=== PATIENT | male | born 1975 | race Hispanic/Latino ===

== ENCOUNTER 2017-01-07 10:42 | Emergency (ER) | payer MEDICARE ==
[~2017-01-07] VITALS: Ht 170.2 cm; Wt 117.0 kg
[~2017-01-07 10:42] MED LIST: HYDR-757 PO
[2017-01-07] MEDS ORDERED: CYCL5TAB PO (12:07)
[2017-01-07] MEDS ORDERED: PRD20T PO (12:07)
--- NOTE | 2017-01-07 12:08 | ED Upper Extremity ---
General Chief Complaint: Upper Extremity Stated Complaint: LT SHOULDER/ARM PAIN Nursing Triage Note: PT CO OF L SHOULDER AND ARM PAIN, DENIES INJURY, STATES PAIN GOES AWAY WHEN RAISES L ARM Nursing Sepsis Screen: No Definite Risk Source: patient Exam Limitations: no limitations History of Present Illness Time seen by provider: 12:05 Initial Comments To ER with left shoulder and arm pain. The pain also affects the posterior medial aspect of the scapula and shoulder region. States that at work he does a lot of overhead lifting of heavy weights in the 50-80 pound range. This began last night. He's never had this before. Pain gets better with lifting his arm up over his head. Pain radiates all the way down his hand to his fingers. Onset: yesterday Severity: moderate Pain/Injury Location: left shoulder Modifying Factors: Worse With Movement Allergies and Home Medications Allergies Coded Allergies: No Known Drug Allergies (Unverified , 03/17/14) Home Medications No Active Prescriptions or Reported Meds Constitutional: see HPI EENTM: see HPI Respiratory: no symptoms reported Cardiovascular: no symptoms reported Genitourinary: no symptoms reported Musculoskeletal: see HPI Skin: no symptoms reported Psychiatric/Neurological: No Symptoms Reported Past Dzupnis-Fkwtwu-Zzgrxq Hx Patient Social History Alcohol Use: Rarely Uses Number of Drinks Today: 0 Alcohol Beverage of Choice: Beer Recreational Drug Use: No Smoking Status: Current Someday Smoker Type Used: Cigarettes Recent Foreign Travel: No Contact w/Someone Who Travel: No Recent Infectious Disease Expo: No Recent Hopitalizations: No Physical Abuse: No Sexual Abuse: No Seasonal Allergies Seasonal Allergies: Yes Psychosocial Suicide Risk Score: 0 Physical Exam Vital Signs Vital Sign - Last 12Hours 01/07/17 11:20 Temp 97.1 Pulse 100 Resp 18 B/P (MAP) 43/98 Pulse Ox 98 Capillary Refill : Less Than 3 Seconds General Appearance: WD/WN, no apparent distress HEENT: PERRL/EOMI, normal ENT inspection Neck: non-tender, full range of motion Respiratory: normal breath sounds, no respiratory distress, no accessory muscle use Gastrointestinal: normal bowel sounds, non tender, soft Shoulder: normal inspection, non-tender (a bit of tenderness to the medial aspect of the superior left scapula. Full range of motion of the arm. No swelling or ecchymosis.) Elbow/Forearm: normal inspection, non-tender, no evidence of injury Wrist: Yes normal inspection, Yes non-tender Neurologic/Psychiatric: alert, normal mood/affect, oriented x 3 Skin: normal color, warm/dry Progress/Results/Core Measures Results/Orders Vital Signs/I&O Vital Sign - Last 12Hours 01/07/17 11:20 Temp 97.1 Pulse 100 Resp 18 B/P (MAP) 43/98 Pulse Ox 98 Blood Pressure Mean: 80 Departure Impression Impression: Primary Impression: Cervical radiculopathy Disposition: HOME, SELF-CARE Condition: Stable Departure-Patient Inst. Decision time for Depature: 12:06 Referrals: [facility] (PCP/Family) Primary Care Physician Patient Instructions: Radiculopathy (DC) Add. Discharge Instructions: 1. Medication as directed 2. Follow-up with your doctor next week for further evaluation if the pain persists 3. Return to ER for any worsening 4. A work note is on the very back PAGE of this packet All discharge instructions reviewed with patient and/or family. Voiced understanding. Scripts Cyclobenzaprine HCl (Cyclobenzaprine HCl) 5 Mg Tablet 5 MG PO TID Y for PAIN-SEVERE, #20 TAB Prov: TYRESE CORRALES APRN 01/07/17 Prednisone (Prednisone) 20 Mg Tab 40 MG PO DAILY, #8 TAB Prov: TYRESE CORRALES APRN 01/07/17 Work/School Note: Work Release Form Date Seen in the Emergency Department: Jan 07, 2017 Return to Work: Jan 11, 2017 Restrictions: No Restrictions TYRESE CORRALES APRN Jan 07, 2017 12:08
[2017-01-07 12:15] VITALS: BP 142/90
[2017-01-07] MEDS ORDERED: KETOROLAC 60 MG/2 ML VIAL IM ONE (12:15)
[2017-01-07] MEDS ORDERED: ORPHENADRINE 60 MG/2 ML (NORFLEX) AMP IM ONE (12:15)
== END 2017-01-07 12:15 | disposition home or self-care (01) ==
LOC: EDUNIT# 10:42 → ER 10:44
DX: M54.12 Radiculopathy, cervical region (principal); F17.210 Nicotine dependence, cigarettes, uncomplicated
CPT/HCPCS: 99284

== ENCOUNTER 2018-05-06 11:23 | Emergency (ER) | payer MEDICARE, OTHER ==
[~2018-05-06] VITALS: Ht 170.2 cm; Wt 106.6 kg
[~2018-05-06 11:23] MED LIST changes: +CYCL5TAB PO; +HYDR-4226 PO; -HYDR-757 PO; +PRD20T PO
--- NOTE | 2018-05-06 11:51 | NUR ---
NOTIFIED OF BUSY ER WITH POSSIBLE LONG WAIT TIME.
[2018-05-06 12:52] LABS: BASOPHILS % (AUTO) 0 % (0-10); BILIRUBIN,URINE 2+ (NEGATIVE); CLARITY,URINE CLEAR; COLOR,URINE AMBER; EOSINOPHILS % (AUTO) 0 % (0-10); GLUCOSE, URINE (UA) 1+ (NEGATIVE); HEMATOCRIT 49 % (40-54); HEMOGLOBIN 16.9 G/DL (13.3-17.7); KETONES,URINE 1+ (NEGATIVE); LEUKOCYTE ESTERASE ,URINE 2+ (NEGATIVE); LYMPHOCYTES # (AUTO) 0.8 X 10^3 (1.0-4.0); LYMPHOCYTES % (AUTO) 7 % (12-44); MEAN CORPUSCULAR HEMOGLOBIN 29 PG (25-34); MEAN CORPUSCULAR HGB CONC 35 G/DL (32-36); MEAN CORPUSCULAR VOLUME 84 FL (80-99); MONOCYTES % (AUTO) 9 % (0-12); NEUTROPHILS # (AUTO) 9.4 X 10^3 (1.8-7.8); NEUTROPHILS % (AUTO) 84 % (42-75); NITRITE,URINE POSITIVE (NEGATIVE); PH,URINE 5 (5-9); PLATELET COUNT 305 10^3/uL (130-400); PROTEIN,URINE 3+ (NEGATIVE); RED BLOOD COUNT 5.78 10^6/uL (4.35-5.85); RED CELL DISTRIBUTION WIDTH 13.1 % (10.0-14.5); UROBILINOGEN,URINE 4 MG/DL (NORMAL); WHITE BLOOD COUNT 11.2 10^3/uL (4.3-11.0)
[2018-05-06 12:55] LABS: BACTERIA,URINE MODERATE /HPF; HYALINE CASTS, URINE 0-2 /LPF; WBC,URINE 0-2 /HPF
--- NOTE | 2018-05-06 12:56 | ED Abdominal Pain ---
General Chief Complaint: Abdominal/GI Problems Stated Complaint: N/V;ABD PAIN Nursing Triage Note: LLQ ABD PAIN THAT RAIDATES TO LUQ PAIN STARTING LAST NIGHT ALONG WITH VOMITING. Sepsis Screen: No Definite Risk Source of Information: Patient Exam Limitations: No Limitations History of Present Illness Date Seen by Provider: May 06, 2018 Time Seen by Provider: 12:54 Initial Comments To ER with left lower quadrant abdominal pain. This began yesterday and radiates to the left upper quadrant. He denies fevers but he has had chills. He' s had nausea vomiting and loose stools. No history of this. Timing/Duration: 1-2 Days Severity/Quality: Moderate Location: LLQ Radiation: No Radiation Activities at Onset: None Associated Symptoms: Fever/Chills, Nausea/Vomiting Allergies and Home Medications Allergies Coded Allergies: No Known Drug Allergies (Unverified , 03/17/14) Home Medications Cyclobenzaprine HCl 5 Mg Tablet, 5 MG PO TID PRN for PAIN-SEVERE Prescribed by: TYRESE CORRALES on 01/07/171206 Prednisone 20 Mg Tab, 40 MG PO DAILY Prescribed by: TYRESE CORRALES on 01/07/17 1207 Patient Home Medication List Home Medication List Reviewed: Yes Review of Systems Review of Systems Constitutional: see HPI EENTM: No Symptoms Reported Respiratory: No Symptoms Reported Cardiovascular: See HPI Gastrointestinal: See HPI, Abdominal Pain, Diarrhea, Nausea Genitourinary: No Symptoms Reported Musculoskeletal: no symptoms reported Skin: no symptoms reported Psychiatric/Neurological: No Symptoms Reported Endocrine: No Symptoms Reported Past Qjoixes-Jflshb-Hzwlvj Hx Patient Social History Alcohol Beverage of Choice: Beer Type Used: Cigarettes Recent Foreign Travel: No Contact w/Someone Who Travel: No Recent Infectious Disease Expo: No Recent Hopitalizations: No Seasonal Allergies Seasonal Allergies: Yes Physical Exam Vital Signs Vital Signs - First Documented 05/06/18 11:49 Temp 98.1 Pulse 127 Resp 16 B/P (MAP) 133/73 (93) Pulse Ox 95 O2 Delivery Room Air Capillary Refill : Less Than 3 Seconds Height/Weight/BMI Height: 5'7.00" Weight: 235lbs. oz. 106.432384ff; BMI Method:Stated General Appearance: WD/WN, no apparent distress HEENT: PERRL/EOMI, normal ENT inspection Respiratory: no respiratory distress, no accessory muscle use Cardiovascular: no murmur, tachycardia Gastrointestinal: normal bowel sounds, soft, tenderness Extremities: normal range of motion, non-tender Neurologic/Psychiatric: alert, normal mood/affect, oriented x 3 Skin: normal color, warm/dry Progress/Results/Core Measures Results/Orders Lab Results Laboratory Tests Test 05/06/18 12:46 Range/Units White Blood Count 11.2 H 4.3-11.0 10^3/uL Red Blood Count 5.78 4.35-5.85 10^6/uL Hemoglobin 16.9 13.3-17.7 G/DL Hematocrit 49 40-54 % Mean Corpuscular Volume 84 80-99 FL Mean Corpuscular Hemoglobin 29 25-34 PG Mean Corpuscular Hemoglobin Concent 35 32-36 G/DL Red Cell Distribution Width 13.1 10.0-14.5 % Platelet Count 305 130-400 10^3/uL Mean Platelet Volume 9.0 7.4-10.4 FL Neutrophils (%) (Auto) 84 H 42-75 % Lymphocytes (%) (Auto) 7 L 12-44 % Monocytes (%) (Auto) 9 0-12 % Eosinophils (%) (Auto) 0 0-10 % Basophils (%) (Auto) 0 0-10 % Neutrophils # (Auto) 9.4 H 1.8-7.8 X 10^3 Lymphocytes # (Auto) 0.8 L 1.0-4.0 X 10^3 Monocytes # (Auto) 1.0 0.0-1.0 X 10^3 Eosinophils # (Auto) 0.0 0.0-0.3 10^3/uL Basophils # (Auto) 0.0 0.0-0.1 10^3/uL Neutrophils % (Manual) 83 % Lymphocytes % (Manual) 7 % Monocytes % (Manual) 13 % Urine Color MARJORIE H Urine Clarity CLEAR Urine pH 5 5-9 Urine Specific Monitor 1.030 H 1.016-1.022 Urine Protein 3+ H NEGATIVE Urine Glucose (UA) 1+ H NEGATIVE Urine Ketones 1+ H NEGATIVE Urine Nitrite POSITIVE H NEGATIVE Urine Bilirubin 2+ H NEGATIVE Urine Urobilinogen 4 H NORMAL MG/DL Urine Leukocyte Esterase 2+ H NEGATIVE Urine RBC (Auto) 1+ H NEGATIVE Urine RBC NONE /HPF Urine WBC 0-2 /HPF Urine Squamous Epithelial Cells 5-10 /HPF Urine Crystals NONE /LPF Urine Bacteria MODERATE H /HPF Urine Casts PRESENT /LPF Urine Hyaline Casts 0-2 H /LPF Urine Mucus MODERATE H /LPF Urine Culture Indicated YES Sodium Level 136 135-145 MMOL/L Potassium Level 4.1 3.6-5.0 MMOL/L Chloride Level 100 98-107 MMOL/L Carbon Dioxide Level 21 21-32 MMOL/L Anion Gap 15 H 5-14 MMOL/L Blood Urea Nitrogen 24 H 7-18 MG/DL Creatinine 1.33 H 0.60-1.30 MG/DL Estimat Glomerular Filtration Rate 60 BUN/Creatinine Ratio 18 Glucose Level 188 H 70-105 MG/DL Calcium Level 10.0 8.5-10.1 MG/DL Corrected Calcium 8.5-10.1 MG/DL Total Bilirubin 0.6 0.1-1.0 MG/DL Aspartate Amino Transf (AST/SGOT) 156 H 5-34 U/L Alanine Aminotransferase (ALT/SGPT) 108 H 0-55 U/L Alkaline Phosphatase 121 40-136 U/L Total Protein 9.1 H 6.4-8.2 GM/DL Albumin 5.1 H 3.2-4.5 GM/DL Lipase 48 8-78 U/L My Orders Orders - TYRESE CORRALES APRN Cbc With Automated Diff (05/06/18 12:06) Comprehensive Metabolic Panel (05/06/18 12:06) Lipase (05/06/18 12:06) Iv Heplock-Insert (Order) (05/06/18 12:06) Lactated Ringers (Lr 1000 Ml Iv Solution (05/06/18 13:00) Ct Abdomen/Pelvis W (05/06/18 12:51) Manual Differential (05/06/18 12:46) Ketorolac Injection (Toradol Injection) (05/06/18 13:00) Iohexol Injection (Omnipaque 350 Mg/Ml 1 (05/06/18 13:00) Contrast Received (Contrast Received) (05/06/18 13:00) Ns (Ivpb) (Sodium Chloride 0.9% Ivpb Bag (05/06/18 13:00) Ns Iv 1000 Ml (Sodium Chloride 0.9%) (05/06/18 13:30) Hyoscyamine Sl Tablet (Levsin Sl Tablet) (05/06/18 14:15) Medications Given in ED Current Medications Medications Dose Ordered Sig/Gela Route Start Time Stop Time Status Last Admin Dose Admin Iohexol 100 ml ONCE ONCE IV 05/06/18 13:00 05/06/18 13:02 DC 05/06/18 13:46 100 ML Ketorolac Tromethamine 15 mg ONCE ONCE IVP 05/06/18 13:00 05/06/18 13:01 DC 05/06/18 13:16 15 MG Sodium Chloride 100 ml ONCE ONCE IV 05/06/18 13:00 05/06/18 13:02 DC 05/06/18 13:46 80 ML Vital Signs/I&O 05/06/18 11:49 Temp 98.1 Pulse 127 Resp 16 B/P (MAP) 133/73 (93) Pulse Ox 95 O2 Delivery Room Air Blood Pressure Mean: 93 Diagnostic Imaging Diagonstic Imaging: Xray Comments NAME: ELYSIA POP [facility] REC#: [id number] PT STATUS: REG ER : 1975 PHYSICIAN: TYRESE CORRALES ORGANIZATIONAL PSYCHOLOGIST ADMIT DATE: 05/06/18/ER Draft Date of Exam:05/06/18 CT ABDOMEN/PELVIS W PROCEDURE: CT abdomen and pelvis with contrast. TECHNIQUE: Multiple contiguous axial images were obtained through the abdomen and pelvis after administration of intravenous contrast. INDICATION: Left lower quadrant pain. COMPARISON: None available. FINDINGS: Lower chest: The lung bases are clear. No pericardial or pleural effusion. Peritoneum: No free intraperitoneal air or fluid. Liver and biliary system: Marked hypoattenuation of the liver is compatible with diffuse hepatic steatosis. No focal hepatic lesion. The gallbladder is normal. No biliary duct dilation. Spleen and Pancreas: Spleen is normal. The pancreas enhances normally without mass lesion or peripancreatic inflammatory changes. Adrenals: Benign fat-containing nodule within the left adrenal gland measuring 2.8 x 2.6 cm is most compatible with a myelolipoma. No right adrenal mass. tract: The kidneys enhance normally without suspicious mass or obstruction. Partially duplicated left-sided renal collecting system. Urinary bladder is distended without wall thickening. Prostate is not enlarged. GI tract: Stomach is fluid filled without wall thickening. Fluid-filled small bowel loops are not dilated. There is fluid throughout the colon without wall thickening or pericolonic inflammatory changes. Normal appendix. Vasculature and Lymph nodes: Normal caliber aorta. No abdominal or pelvic lymphadenopathy. Musculoskeletal: No concerning osseous lesion. IMPRESSION: 1. Fluid-filled but nondilated stomach, small bowel, and colon are features most suggestive of a gastroenteritis. No colitis or diverticulitis. 2. Diffuse hepatic steatosis. Dictated on workstation # [id number] Dict: 05/06/18 1422 Trans: 05/06/18 1429 [id number] Interpreted by: MARIXA HUANG MD Electronically signed by: Departure Impression Primary Impression: Gastroenteritis Disposition: HOME, SELF-CARE Condition: Stable Departure-Patient Inst. Decision time for Depature: 15:00 Referrals: [facility] (PCP/Family) Primary Care Physician Patient Instructions: [id number] Add. Discharge Instructions: 1. Medication as directed 2. Return to ER for any concerns 3. Follow-up with your doctor next week 4. Drink plenty of fluids to stay hydrated. Pedialyte is a great choice. All discharge instructions reviewed with patient and/or family. Voiced understanding. Scripts Ondansetron (Ondansetron Odt) 8 Mg Tab.rapdis 8 MG PO Q6H PRN for NAUSEA/VOMITING, #10 TAB Prov: TYRESE CORRALES ORGANIZATIONAL PSYCHOLOGIST 05/06/18 Hyoscyamine Sulfate (Levsin-Sl) 0.125 Mg Tab.subl 0.125 MG SL Q4H PRN for CRAMPS, #20 TAB Prov: TYRESE CORRALES APRN 05/06/18 Work/School Note: Work Release Form Date Seen in the Emergency Department: May 06, 2018 Return to Work: May 08, 2018 Restrictions: No Restrictions TYRESE CORRALES APRN May 06, 2018 12:56
[2018-05-06] MEDS ORDERED: IOHEXOL 350 MG/ML 100 ML (OMNIPAQUE 350) VIAL IV ONE (13:00)
[2018-05-06] MEDS ORDERED: RECEIVED CONTRAST (Hold Metformin) IV SCH (13:00)
[2018-05-06] MEDS ORDERED: NS 100 ML (IVPB) BAG IV ONE (13:00)
[2018-05-06] MEDS ORDERED: KETOROLAC 30 MG/ML VIAL IVP ONE (13:00)
[2018-05-06] MEDS ORDERED: LACTATED RINGERS 1,000 ML IV SCH (13:00)
[2018-05-06 13:10] LABS: ALANINE AMINOTRANSFERASE 108 U/L (0-55); ALBUMIN 5.1 GM/DL (3.2-4.5); ALKALINE PHOSPHATASE 121 U/L (40-136); BILIRUBIN,TOTAL 0.6 MG/DL (0.1-1.0); BUN/CREATININE RATIO 18; CARBON DIOXIDE 21 MMOL/L (21-32); CHLORIDE 100 MMOL/L (98-107); CREATININE SERUM 1.33 MG/DL (0.60-1.30); GFR ESTIMATED 60; GLUCOSE 188 MG/DL (70-105); LIPASE 48 U/L (8-78); POTASSIUM 4.1 MMOL/L (3.6-5.0); SODIUM 136 MMOL/L (135-145); TOTAL PROTEIN 9.1 GM/DL (6.4-8.2)
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
[2018-05-06] MEDS ORDERED: NS IV 1000 ML 1,000 ML IV SCH (13:30)
[2018-05-06 13:40] LABS: LYMPHOCYTES % (MANUAL) 7 %; MONOCYTES % (MANUAL) 13 %; NEUTROPHILS % (MANUAL) 83 %
[2018-05-06] MEDS ORDERED: HYOSCYAMINE 0.125 MG (LEVSIN) TAB PO ONE (14:15)
--- NOTE | 2018-05-06 14:30 | Diagnostic Imaging Report ---
PROCEDURE: CT abdomen and pelvis with contrast. TECHNIQUE: Multiple contiguous axial images were obtained through the abdomen and pelvis after administration of intravenous contrast. INDICATION: Left lower quadrant pain. COMPARISON: None available. FINDINGS: Lower chest: The lung bases are clear. No pericardial or pleural effusion. Peritoneum: No free intraperitoneal air or fluid. Liver and biliary system: Marked hypoattenuation of the liver is compatible with diffuse hepatic steatosis. No focal hepatic lesion. The gallbladder is normal. No biliary duct dilation. Spleen and Pancreas: Spleen is normal. The pancreas enhances normally without mass lesion or peripancreatic inflammatory changes. Adrenals: Benign fat-containing nodule within the left adrenal gland measuring 2.8 x 2.6 cm is most compatible with a myelolipoma. No right adrenal mass. tract: The kidneys enhance normally without suspicious mass or obstruction. Partially duplicated left-sided renal collecting system. Urinary bladder is distended without wall thickening. Prostate is not enlarged. GI tract: Stomach is fluid filled without wall thickening. Fluid-filled small bowel loops are not dilated. There is fluid throughout the colon without wall thickening or pericolonic inflammatory changes. Normal appendix. Vasculature and Lymph nodes: Normal caliber aorta. No abdominal or pelvic lymphadenopathy. Musculoskeletal: No concerning osseous lesion. IMPRESSION: 1. Fluid-filled but nondilated stomach, small bowel, and colon are features most suggestive of a gastroenteritis. No colitis or diverticulitis. 2. Diffuse hepatic steatosis. Dictated by: Dictated on workstation # [id number]
[2018-05-06] MEDS ORDERED: HYOS0.1283 SL (15:01)
[2018-05-06] MEDS ORDERED: ONDA8TAB13 PO (15:01)
[2018-05-06 15:05] VITALS: BP 133/73
== END 2018-05-06 15:05 | disposition home or self-care (01) ==
LOC: EDUNIT# 11:23 → ER 11:25
DX: K52.9 Noninfective gastroenteritis and colitis, unspecified (principal); Z79.52 Long term (current) use of systemic steroids
CPT/HCPCS: 36415; 74177; 80053; 81000; 83690; 85007; 85027; 87077; 87088